=== PATIENT | male | born 1990 | race Caucasian/White ===

== ENCOUNTER 2018-05-24 19:45 | Emergency (ER) | payer SELFPAY ==
[~2018-05-24] VITALS: Ht 180.3 cm; Wt 87.0 kg
[2018-05-24 19:55] VITALS: BP 145/85; PULSE 81; RESP 16; Ht 180.3 cm; Wt 87.0 kg
== END 2018-05-24 20:19 | disposition left against medical advice (07) ==
LOC: E/R 19:45
DX: Z53.21 Procedure and treatment not carried out due to patient leaving prior to being seen by health care provider (principal)
CPT/HCPCS: 93005